=== PATIENT | male | born 1970 | race Caucasian/White ===

== ENCOUNTER 2021-02-11 01:38 | Day surgery (SDC) | payer OTHER, SELFPAY ==
[2021-01-29 14:08] VITALS: BMI 38.2
[2021-02-11 10:35] VITALS: BP 139/87; PULSE 69; RESP 18; TEMP 36.3; O2SAT 97; BMI 39.2
--- NOTE | 2021-02-11 10:44 | WPDANESEPPF ---
Anes - Initial Pre Proc Eval Procedure: Operation Date: 02/11/21 11:00 Proposed Procedures p Screening Colonoscopy - Jose Luis Kendall MD Date/Time: 02/11/21 10:44 Surgeon: Jose Luis Kendall MD Pre Op Diagnosis: neoplasm screening Patient Data Age: 50 Gender: M Height: 1.73 m Weight: 116.9 kg Last Vital Signs Temp 36.3 C L 02/11/21 10:35 Pulse 69 02/11/21 10:35 Resp 18 02/11/21 10:35 BP 139/87 02/11/21 10:35 Pulse Ox 97 02/11/21 10:35 Allergies Allergy/AdvReac Type Severity Reaction Status Date / Time bee venom protein (honey bee) Allergy Severe Unknown Verified 02/11/21 10:34 mushroom Allergy Nausea and Verified 02/11/21 10:34 Vomiting Home Medications Medication Instructions Recorded Confirmed Type amlodipine 10 mg tablet 10 mg PO DAILY #90 tablet 11/07/20 01/29/21 Rx atorvastatin 20 mg tablet 20 mg PO DAILY #90 tablet 11/07/20 01/29/21 Rx Patient hx anesthesia problems: none Family hx anesthesia problems: none PMFSH Past Medical History Medical History (Updated 02/11/21 @ 10:44 by Werner Graves MD) Essential hypertension Obesity (BMI 30-39.9) Other and unspecified hyperlipidemia Family History Family History Father Diabetes mellitus Acute myocardial infarction Mother Hypertension Sibling Patient's brother is in good health Social History Social History Smoking status: Never smoker Alcohol intake: current Alcohol use details: Socially Living arrangements: with family Spiritual care concerns: No Anes - Eval Final PreProcedure Day of Procedure 02/11/21 10:44 Patient weight: obese Heart: regular rate and rhythm Lungs: clear to auscultation and normal air movement Airway: Mallampati scale class II Neurological: alert and oriented Last oral intake: >/= 8 hours ASA classification: III Emergent: no Anesthetic plan: proceed Anesthesia type and monitoring: general GIVS Informed Consent: The patient's anesthetic plan and its attendant risks and benefits were discussed with the patient/family/POA. Questions were solicited and answers provided to the satisfaction of the patient/family/POA.
[2021-02-11] MEDS: LACTATED RINGERS 1,000 ML 150 ML IV CONT (10:47)
--- NOTE | 2021-02-11 11:33 | PM.HPGS ---
History of Present Illness History of Present Illness Consent: Risks, benefits, and alternatives have been discussed and questions answered. Patient agrees to proceed with procedure. Chief complaint: neoplasm screening Narrative: Olvin Paige is a 50 year old male here for first screening colonoscopy Review of Systems Constitutional: Constitutional: Denies headache(s) and Denies weakness Eyes: Eyes: Denies blurry vision ENT: Reports Normal hearing present, Denies headache(s) and Denies neck pain Cardiovascular: Cardiovascular: Denies chest pain and Denies dyspnea Respiratory: Respiratory: Denies dyspnea Gastrointestinal: Gastrointestinal: Reports no additional gastrointestinal complaints Genitourinary: Genitourinary: Denies dysuria Musculoskeletal: Musculoskeletal: Denies neck pain Integumentary/Breasts: Skin/Breast: Denies dry skin Neurologic: Reports Normal hearing present, Denies headache(s) and Denies weakness Psychiatric: Psychiatric: Denies anxiety Endocrine: Endocrine: Denies change in body appearance Hematologic/Lymphatic: Hematologic/Lymphatic: Denies easy bleeding Allergic/Immunologic: Allergic/Immunologic: Denies urticaria [facility] Past Medical History Medical History (Updated 02/11/21 @ 11:33 by Jose Luis Kendall MD) Colon cancer screening Essential hypertension Obesity (BMI 30-39.9) Other and unspecified hyperlipidemia Family History Family History Father Diabetes mellitus Acute myocardial infarction Mother Hypertension Sibling Patient's brother is in good health Social History Social History Smoking status: Never smoker Alcohol intake: current Alcohol use details: Socially Living arrangements: with family Spiritual care concerns: No Meds Home Medications and Allergies Home Medications Medication Instructions Recorded Confirmed Type amlodipine 10 mg tablet 10 mg PO DAILY #90 tablet 11/07/20 01/29/21 Rx atorvastatin 20 mg tablet 20 mg PO DAILY #90 tablet 11/07/20 01/29/21 Rx Allergies Allergy/AdvReac Type Severity Reaction Status Date / Time bee venom protein (honey bee) Allergy Severe Unknown Verified 02/11/21 10:34 mushroom Allergy Nausea and Verified 02/11/21 10:34 Vomiting Vital Signs Vital Signs - 24 hr 02/11/21 10:35 Temperature 97.4 F L Pulse Rate 69 Respiratory Rate 18 Blood Pressure 139/87 Pulse Oximetry 97 Exam Const: General: comfortable and no acute distress HENMT: General nose exam: Normal nares present Eyes: General: appearance normal, both eyes and all related structures Neck: Neck: no JVD Resp: Auscultation: clear to auscultation bilaterally Cardio: Rate: regular rate Rhythm: regular rhythm GI: Inspection: non-distended GI Palp: Yes Soft to palpation Skin: General skin exam: normal color Neuro: General: gait normal Speech: normal speech Extrem: General: normal to inspection Psych: Mental Status: mental status grossly normal Assessment and Plan Assessment and plan (1) Colon cancer screening: Code(s): Z12.11 - Encounter for screening for malignant neoplasm of colon Status: Acute Assessment and Plan: colonoscopy
--- NOTE | 2021-02-11 11:44 | SUR.OPER ---
cecum at 1144
[2021-02-11 12:00] VITALS: BP 117/68; PULSE 64; RESP 14; O2SAT 98
[2021-02-11 12:10] VITALS: BP 117/71; PULSE 62; RESP 17; O2SAT 96
[2021-02-11 12:20] VITALS: BP 132/85; PULSE 63; RESP 14; O2SAT 97
== END 2021-02-11 12:37 | disposition home or self-care (01) ==
PROVIDERS: PCP Internal Medicine; Visit Provider Internal Medicine Gastroenterology
PROC: 0DJD8ZZ Inspection of Lower Intestinal Tract, Via Natural or Artificial Opening Endoscopic (ICD-10-PCS; CPT 45378; principal; 2021-02-11 11:00)
DX: Z12.11 Encounter for screening for malignant neoplasm of colon (principal); K63.5 Polyp of colon; D12.4 Benign neoplasm of descending colon; I10 Essential (primary) hypertension; E78.5 Hyperlipidemia, unspecified; E66.9 Obesity, unspecified; Z68.39 Body mass index [BMI] 39.0-39.9, adult
CPT/HCPCS: 45385; 88305; J2001; J2704; J7120

== ENCOUNTER → 2021-08-03 09:11 | Outpatient (CLI) | payer OTHER, SELFPAY ==
[2021-08-03 11:23] LABS: Influenza A QL RT-PCR Negative (Negative); Influenza B QL RT-PCR Negative (Negative); SARS-CoV-2 RNA PCR Negative
== END ==
PROVIDERS: PCP Internal Medicine; Visit Provider Internal Medicine
DX: R05.9 Cough, unspecified (principal); Z20.822 Contact with and (suspected) exposure to COVID-19
CPT/HCPCS: 87502; C9803; U0003; U0005

== ENCOUNTER 2022-02-02 09:52 | Outpatient (CLI) | payer OTHER, SELFPAY ==
[2022-02-02 19:04] LABS: Cholesterol 216 mg/dL (0-200); HDL Direct 31 mg/dL; Triglycerides 176 mg/dL (<150)
[2022-02-02 19:15] LABS: LDL Cholesterol Direct 146 mg/dL
== END 2022-02-02 09:53 | disposition home or self-care (01) ==
LOC: ANHGOSHLAB 09:55
PROVIDERS: PCP Family Medicine; Visit Provider Family Medicine
DX: E78.5 Hyperlipidemia, unspecified (principal)
CPT/HCPCS: 36415; 80061

== ENCOUNTER 2023-02-07 09:32 | Outpatient (CLI) | payer OTHER, SELFPAY ==
[2023-02-07 19:18] LABS: Basophils Absolute Auto 0.1 K/mm3 (0.0-0.1); Basophils Percent Auto 1.1 % (0.2-1.2); Eosinophils Absolute Auto 0.3 K/mm3 (0-0.3); Eosinophils Percent Auto 3.2 % (0-4.4); Hematocrit 46.2 % (42.0-52.0); Hemoglobin 14.7 g/dL (14.0-18.0); Immature Granulocyte Absolute 0.03 K/mm3 (0.00-0.031); Immature Granulocyte Percent A 0.4 % (0-0.5); Lymphocytes Absolute Auto 2.55 K/mm3 (0.9-3.2); Lymphocytes Percent Auto 32.4 % (18.3-44.2); Mean Corpuscular HGB Conc 31.8 g/dl (32-36); Mean Corpuscular Hemoglobin 28.8 pg (26-34); Mean Corpuscular Volume 90.6 fl (80-100); Mean Platelet Volume 10.8 fl (7.4-10.4); Monocytes Absolute Auto 0.6 K/mm3 (0.1-0.6); Monocytes Percent Auto 7.3 % (2.6-8.5); Neutrophils Absolute Auto 4.4 K/mm3 (1.3-6.7); Neutrophils Percent Auto 55.6 % (45.5-73.1); Platelet Count Result 245 k/mm3 (150-375); Red Cell Distribution Width 12.4 % (11.5-14.5); White Blood Count 7.9 K/mm3 (4.5-10.0)
[2023-02-07 19:51] LABS: Alanine Aminotransferase 39 U/L (6-50); Albumin Level 4.4 g/dL (3.5-5.1); Alkaline Phosphatase 65 U/L (38-126); Anion Gap 6 mmol/L (8-16); Aspartate Amino Transferase 62 U/L (17-59); Bilirubin,Total 0.5 mg/dL (0.2-1.3); Blood Urea Nitrogen 14 mg/dL (9-20); Calcium 9.2 mg/dL (8.4-10.2); Carbon Dioxide 29 mmol/L (22-30); Chloride 102 mmol/L (98-107); Cholesterol 154 mg/dL (0-200); Estimated Glomerular Filt Rate > 60; Glucose 104 mg/dL (65-110); HDL Direct 35 mg/dL; Potassium 4.7 mmol/L (3.4-5.0); Sodium 137 mmol/L (137-145); Triglycerides 164 mg/dL (<150)
[2023-02-07 20:02] LABS: LDL Cholesterol Direct 88 mg/dL
[2023-02-08 17:26] LABS: Prostate Specific Antigen 1.3 ng/mL (< OR = 4.0)
== END 2023-02-07 09:33 | disposition home or self-care (01) ==
LOC: ANHGOSHLAB 09:33
PROVIDERS: PCP Family Medicine; Visit Provider Family Medicine
DX: Z13.220 Encounter for screening for lipoid disorders (principal); Z13.228 Encounter for screening for other metabolic disorders; Z12.5 Encounter for screening for malignant neoplasm of prostate; R53.83 Other fatigue
CPT/HCPCS: 36415; 80053; 80061; 84153; 85025; G0103

== ENCOUNTER 2023-09-19 07:01 | Emergency (ER) | payer OTHER, SELFPAY ==
[2023-09-19] VITALS (17 sets, daily range): BP systolic 114–146; BP diastolic 73–99; PULSE 72–100; RESP 13–22; TEMP 36.6–37.3; O2SAT 93–100
--- NOTE | ~2023-09-19 | XR_ITS ---
XR ankle LT 2V 09/19/2023 09:43 Indication: Post reduction left ankle fracture Procedure: 2 views left ankle Comparison: 09/19/2023 Findings: There is improved displacement/angulation of oblique distal fibular fracture. There is decr eased widening of the medial aspect of the ankle mortise. There is a small ossific density posterior to the tibia on the lateral view, suspicious for avulsion fracture. Small degenerative calcaneal enth esophyte. Impression: 1: Improved alignment of left ankle post reduction. Improved alignment of oblique distal fibular frac ture. Possible avulsion fracture posterior malleolus. Reviewed, dictated and finalized at location B. Impression: 1: Improved alignment of left ankle post reduction. Improved alignment of obliq ue distal fibular fracture. Possible avulsion fracture posterior malleolus.
--- NOTE | ~2023-09-19 | XR_ITS ---
Left ankle Technique: AP, oblique, and lateral views were obtained. Clinical History: Pain Findings: There is an acute, oblique fracture of the distal fibula, at and just proximal to level ank le mortise, mildly displaced. There is widening of the medial aspect of the ankle mortise. No distal tibial fracture clearly identified. Mild soft tissue swelling about the ankle is noted. Impression: Acute, oblique, mildly displaced fracture the distal fibula, as detailed above. Associated widening of the medial aspect of the ankle mortise. Reviewed, dictated and finalized at location M. Impression: Acute, oblique, mildly displaced fracture the distal fibula, as detailed above. Associated widening of the medial aspect of the ankle mortise.
--- NOTE | ~2023-09-19 | XR_ITS ---
Left Shoulder Technique: AP and scapular Y views were obtained. Clinical History: Pain Findings: No fracture or dislocation is seen. Osseous alignment is anatomic. The glenohumeral and acr omioclavicular joint spaces are preserved. Soft tissues are unremarkable. Impression: Unremarkable left shoulder radiographs. Reviewed, dictated and finalized at [facility]. Impression: Unremarkable left shoulder radiographs.
--- NOTE | ~2023-09-19 | XR_ITS ---
XR tibia fibula LT 2V 09/19/2023 08:53 Indication: Left ankle fracture Procedure: 2 views left tibia/fibula Comparison: 09/19/2023 Findings: There is an acute oblique distal fibular fracture with the inferior extent of the level of the ankle mortise. Minimal lateral displacement. Moderate soft tissue swelling. There is widening of the medial ankle mortise. Moderate medial soft tissue swelling is wall. Impression: 1: Acute obliquely oriented distal fibular fracture with mild lateral and posterior displacement and widening of the medial ankle mortise. Reviewed, dictated and finalized at location B. Impression: 1: Acute obliquely oriented distal fibular fracture with mild lateral and poste rior displacement and widening of the medial ankle mortise.
--- NOTE | 2023-09-19 07:52 | ED.LOWEXIN ---
HPI - Extremity Injury (Lower) General Chief Complaint: Extremity Injury, Lower Stated Complaint: fall, ankle pain Time Seen by Provider: 09/19/23 07:51 Source: patient and family Mode of arrival: ambulatory Limitations: no limitations History of Present Illness HPI Narrative: Patient presents with left ankle pain and left shoulder pain after he missed a step and fell down 2 steps earlier today. He denies any paresthesias. He has not yet taken anything for pain. Related Data Allergies Allergy/AdvReac Type Severity Reaction Status Date / Time bee venom protein (honey bee) Allergy Severe Unknown Verified 08/08/23 08:05 mushroom Allergy Nausea and Verified 08/08/23 08:05 Vomiting PMFSH Past Medical History Medical History Colon cancer screening Essential hypertension Obesity (BMI 30-39.9) Other and unspecified hyperlipidemia Family History Family History Father Diabetes mellitus Acute myocardial infarction Mother Hypertension Sibling Patient's brother is in good health Social History Social History Smoking status: Never smoker Alcohol intake: current Alcohol use details: Socially Substance use: never Lack of Transportation: No Lack of Food: Never True Current Housing: I Have Housing Concerned About Future Housing: No Difficulty Paying Gas/Electric Bills: No Difficulty Paying for Meds: No Currently Unemployed: No Education: Bachelor's Degree Difficulty w/ Childcare or Family Care: No Living arrangements: with family Spiritual care concerns: No Exam Narrative: GENERAL: Well-appearing, well-nourished, and in no acute distress. HEAD: Normocephalic, atraumatic. EYES: Non injected, non icteric ENT: Nares clear, no rhinorrhea or epistaxis. Malampati Class III. NECK: Supple. CHEST: Speaking in full sentences. No respiratory distress. HEART: Regular rate and rhythm. Strong palpable DP pulse in left foot. ABDOMEN: Soft, nondistended. EXTREMITIES: Mild edema of left ankle. Able to demonstrate mild dorsiflexion and plantar flexion. Compartments soft. Some TTP proximal fibula on L SKIN: Warm, dry, no rash. NEURO: No focal deficits. Alert and oriented x3. PSYCH: Normal mood and affect. Course Vital Signs Vital signs: Vital Signs Temperature 99.2 F 09/19/23 07:07 Pulse Rate 100 09/19/23 07:07 Respiratory Rate 16 09/19/23 07:07 Blood Pressure 140/82 09/19/23 07:07 Pulse Oximetry 100 09/19/23 07:07 Temperature 97.8 F 09/19/23 09:55 Pulse Rate 75 09/19/23 10:46 Respiratory Rate 18 09/19/23 10:46 Blood Pressure 131/87 09/19/23 10:46 Pulse Oximetry 96 09/19/23 10:46 Oxygen Delivery Nasal Cannula 09/19/23 10:03 Oxygen Flow Rate 2 09/19/23 10:03 Procedures Orthopedic Joint Reduction Joint #1: Orthopedic Joint Reduction Date: 09/19/23 Time Out Performed: Yes ([id number]) Side: left Joint Reduction Location: ankle Analgesia: procedural sedation Pre-Procedure Neuro Vascular Exam: normal Post-reduction neuro exam: intact Post-reduction vascular: intact Post Reduction X-Ray Obtained: Yes Post Reduction X-Ray Results: reduced Splint Applied: Yes Patient Tolerated Procedure: well and no complications MDM - Extremity Injury (Lower) MDM Narrative Medical decision making narrative: Patient presnts with ankle and shoulder pain after accidentally falling down steps. In the emergency department they are afebrile with vital signs within normal limits. Patient has evidence of a distal fibular fracture with mild displacement of the ankle joint. We will performed conscious sedation and joint reduction. Acetaminophen ordered. Given he is having some tenderness to palpation proximally, will also obtain plai
[2023-09-19] MEDS: ACETAMINOPHEN 500 MG TABLET 1000 MG PO (08:50)
[2023-09-19] MEDS: fentaNYL CITRATE INJ (*CRX) 100 MCG/2 ML VIAL IV PUSH (09:31)
[2023-09-19] MEDS: MIDAZOLAM HCL (*CRX) 2 MG/2 ML VIAL IV PUSH (09:33)
== END 2023-09-19 10:55 | disposition home or self-care (01) ==
PROVIDERS: Emergency Provider Student in an Organized Health Care Education/Training Program; PCP Family Medicine
DX: S82.832A Other fracture of upper and lower end of left fibula, initial encounter for closed fracture (principal); I10 Essential (primary) hypertension; E78.49 Other hyperlipidemia; E66.9 Obesity, unspecified; Z68.41 Body mass index [BMI] 40.0-44.9, adult; W10.9XXA Fall (on) (from) unspecified stairs and steps, initial encounter
CPT/HCPCS: 27788; 73030; 73590; 73600; 73610; 99285; A9270; J2250; J3010

== ENCOUNTER 2023-09-26 09:27 | Outpatient (CLI) | payer OTHER, SELFPAY ==
--- NOTE | 2023-09-26 09:55 | ECG_ITS ---
SEE SCANNED COPY FOR CONFIRMED REPORT MTDD
== END 2023-09-26 09:28 | disposition home or self-care (01) ==
LOC: ANHSURGERY 09:32
PROVIDERS: PCP Family Medicine; Visit Provider Orthopaedic Surgery
DX: Z01.818 Encounter for other preprocedural examination (principal); I10 Essential (primary) hypertension
CPT/HCPCS: 93005

== ENCOUNTER 2023-09-27 00:39 | Day surgery (SDC) | payer OTHER, SELFPAY ==
[2023-09-23 15:52] VITALS: BMI 39.6
--- NOTE | 2023-09-23 15:53 | PC.NURSE ---
Report to the Outpatient Waiting Room, entrance under the green pavilion located off [facility], at time _1pm_ on date _[id number]_. Planned Procedure Time: _3pm_. Time changes happen often and if your time is changed the preop area will call you the afternoon before. - You and your visitor will be asked to self-screen and do not enter if you have any COVID symptoms. - A mask is optional within the hospital at this time. Patients may have clear liquids (water, carbonated beverages, clear teas, apple juice) until 3 hours prior to surgery with a maximum of 20 ounces. - No food from midnight until time of surgery Take the following medications with a SIP of water the morning of surgery: ___Amlodipine and pain pill if needed DO NOT STOP ANY OF YOUR OTHER PRESCRIPTION MEDICATIONS PRIOR TO SURGERY ?EXCEPT THE FOLLOWING Medications to discontinue per physician Ibuprofen Date to take last dose__Stop now. Please no make-up, nail zimbabwean, hairspray, perfume, deodorant, or body powder the day of surgery. No jewelry (including any body piercings) or valuables the day of surgery, leave them at home. Please take a shower or bath the night before, or the morning of, surgery with an antibacterial soap. Wear comfortable, loose fitting clothing. - Jewelry must be removed prior to entering the operating room. Rings and piercings that are not removed may be cut off. - The hospital will not accept responsibility for valuables. - Please leave all valuables, including medications, at home the day of surgery. If you are going home after surgery, a licensed van driver must drive you home. - NO public transportation without another adult if you receive anesthesia. - We recommend that an adult stay with you for 24 hours following discharge. - We also recommend that you do not drive, make important decision, drink alcoholic beverages, or take any drugs that were not prescribed by your health care provider for at least 24 hours after your discharge time. Follow any additional instructions given to you from your surgeon. If you or anyone in your household have experienced Covid symptoms in the past week, please notify your surgeon or the nurse liaison at the phone number below for possible testing. Telephone instructions given to __Sean___and asked if any additional questions and then verbalized understanding. Patient advised to call surgeon office or pre surgery nurse liaison [phone] if any additional questions.
--- NOTE | 2023-09-23 16:05 | PC.NURSE ---
Report to the Outpatient Waiting Room, entrance under the green pavilion located off [facility], at time _1pm_ on date _[id number]_. Planned Procedure Time: _3pm_. Time changes happen often and if your time is changed the preop area will call you the afternoon before. - You and your visitor will be asked to self-screen and do not enter if you have any COVID symptoms. - A mask is optional within the hospital at this time. Patients may have clear liquids (water, carbonated beverages, clear teas, apple juice) until 3 hours prior to surgery with a maximum of 20 ounces. - No food from midnight until time of surgery Take the following medications with a SIP of water the morning of surgery: __Amlodipine and if needed pain pill. DO NOT STOP ANY OF YOUR OTHER PRESCRIPTION MEDICATIONS PRIOR TO SURGERY ?EXCEPT THE FOLLOWING Medications to discontinue per physician Ibuprofen Date to take last dose__Stop now. Please no make-up, nail turkmen, hairspray, perfume, deodorant, or body powder the day of surgery. No jewelry (including any body piercings) or valuables the day of surgery, leave them at home. Please take a shower or bath the night before, or the morning of, surgery with an antibacterial soap. Wear comfortable, loose fitting clothing. - Jewelry must be removed prior to entering the operating room. Rings and piercings that are not removed may be cut off. - The hospital will not accept responsibility for valuables. - Please leave all valuables, including medications, at home the day of surgery. If you are going home after surgery, a licensed straddle truck driver must drive you home. - NO public transportation without another adult if you receive anesthesia. - We recommend that an adult stay with you for 24 hours following discharge. - We also recommend that you do not drive, make important decision, drink alcoholic beverages, or take any drugs that were not prescribed by your health care provider for at least 24 hours after your discharge time. Follow any additional instructions given to you from your surgeon. If you or anyone in your household have experienced Covid symptoms in the past week, please notify your surgeon or the nurse liaison at the phone number below for possible testing. Telephone instructions given to __Sean___and asked if any additional questions and then verbalized understanding. Patient advised to call surgeon office or pre surgery nurse liaison [phone] if any additional questions.
[2023-09-27] VITALS (10 sets, daily range): BP systolic 128–183; BP diastolic 83–122; PULSE 90–111; RESP 12–16; TEMP 36.1–36.3; O2SAT 92–100
--- NOTE | ~2023-09-27 | XR_ITS ---
EXAMINATION: XR surgery orthopedic DATE: 09/27/2023 15:39 INDICATION: Distal left fibular fracture. TECHNIQUE: 3 intraoperative spot fluoroscopic views of left ankle were obtained. I was not present. F luoroscopy exposure time was 44 seconds. COMPARISON: Left ankle radiographs 09/19/2023 FINDINGS: There is an oblique fracture of distal fibula in near-anatomic alignment status post open r eduction internal fixation with lateral plate and screws and interfragmentary screw. There is a tensi on band across the tibiofibular syndesmosis. The ankle mortise is normal. IMPRESSION: 1. Oblique fracture of distal fibula status post open reduction internal fixation. 2. Fixation of the tibiofibular syndesmosis. Reviewed, dictated and finalized at location A. IMPRESSION: 1. Oblique fracture of distal fibula status post open reduction internal fixati on. 2. Fixation of the tibiofibular syndesmosis.
--- NOTE | 2023-09-27 12:48 | WPDHPUPDATE1 ---
History and Physical Update Update Date/Time: 09/27/23 12:48 History and Physical has been reviewed, including an updated exam of the patient. There are NO changes in the patient's condition. Risks, benefits, and alternatives have been discussed and questions answered. Patient agrees to proceed with procedure.
[2023-09-27] MEDS: ACETAMINOPHEN 500 MG TABLET 1000 MG PO (13:03)
[2023-09-27] MEDS: LACTATED RINGERS 1,000 ML 30 ML IV CONT ×2 (13:12→15:55)
--- NOTE | 2023-09-27 13:28 | WPDANESEPPF ---
Anes - Initial Pre Proc Eval Procedure: Operation Date: 09/27/23 15:00 Proposed Procedures p Open Reduction Internal Fixation Left Lateral Malleolus Fracture with Tibia Fibula Syndesmosis - Chon Llanes MD Date/Time: 09/27/23 13:28 Surgeon: Chon Llanes MD Pre Op Diagnosis: left ankle lateral maleolous fx Patient Data Age: 53 Gender: M Height: 1.73 m Weight: 116.7 kg Last Vital Signs Temp 36.1 C L 09/27/23 13:14 Pulse 111 H 09/27/23 13:14 Resp 16 09/27/23 13:14 BP 128/89 09/27/23 13:14 Pulse Ox 97 09/27/23 13:14 O2 Del Method Room Air 09/27/23 13:14 Allergies Allergy/AdvReac Type Severity Reaction Status Date / Time bee venom protein (honey bee) Allergy Severe Unknown Verified 09/27/23 12:59 mushroom Allergy Nausea and Verified 09/27/23 12:59 Vomiting Home Medications Medication Instructions Recorded Confirmed Type hydrocortisone 1 % topical ointment 1 applic topical BID #28.35 grams 08/04/21 09/26/23 Rx amlodipine 10 mg tablet 10 mg PO DAILY #90 tabs 02/26/22 09/27/23 Rx atorvastatin 10 mg tablet 10 mg PO DAILY #90 tabs 08/16/23 09/27/23 Rx acetaminophen 500 mg capsule 1,000 mg PO Q6H PRN pain #20 caps 09/19/23 09/27/23 Rx hydrocodone 5 mg-acetaminophen 325 1 tablet PO Q8H PRN pain #12 tabs 09/19/23 09/27/23 Rx mg tablet ibuprofen 600 mg tablet 600 mg PO TID PRN pain #20 tabs 09/19/23 09/27/23 Rx Patient hx anesthesia problems: none Family hx anesthesia problems: none Results Review: All pre-operative results and documents have been reviewed as part of the pre-operative evaluation. [facility] Past Medical History Medical History Colon cancer screening Essential hypertension Obesity (BMI 30-39.9) Other and unspecified hyperlipidemia Family History Family History Father Diabetes mellitus Acute myocardial infarction Mother Hypertension Sibling Patient's brother is in good health Social History Social History Smoking status: Never smoker Alcohol intake: current Alcohol use details: Socially Substance use: never Lack of Transportation: No Lack of Food: Never True Current Housing: I Have Housing Concerned About Future Housing: No Difficulty Paying Gas/Electric Bills: No Difficulty Paying for Meds: No Currently Unemployed: No Education: Bachelor's Degree Difficulty w/ Childcare or Family Care: No Living arrangements: with family Spiritual care concerns: No Anes - Eval Final PreProcedure Day of Procedure 09/27/23 13:28 Patient weight: obese Heart: regular rate and rhythm Lungs: clear to auscultation Airway: Mallampati scale class II Neurological: alert and oriented Last oral intake: >/= 8 hours ASA classification: III Emergent: no Anesthetic plan: proceed Anesthesia type and monitoring: general LMA and standard monitoring Results Review: All pre-operative results and documents have been reviewed as part of the pre-operative evaluation. Informed Consent: The patient's anesthetic plan and its attendant risks and benefits were discussed with the patient/family/POA. Questions were solicited and answers provided to the satisfaction of the patient/family/POA.
[2023-09-27] MEDS: KETOROLAC 15 MG/ML VIAL (*BKC) IV PUSH (13:30)
[2023-09-27] MEDS: ceFAZolin 2 GM/D5W 50 ML 2 GM/50 ML BAG IVPB (14:11)
[2023-09-27] MEDS: BUPIVACAINE/EPINEPHRINE 0.5% 50 ML VIAL 20 ML INFILTRATE (15:07)
--- NOTE | 2023-09-27 16:03 | W.PM.PROC2 ---
Procedure Note - Detailed Date of Procedure 09/27/23 Pre-op Diagnosis 1. Left ankle lateral maleolous fx 2. Tibia fibula syndesmosis disruption. Post-op Diagnosis Same Procedure Performed 1. ORIF left ankle lateral malleolus fracture 2. ORIF tib-fib syndesmosis Surgeon Chon Llanes MD Label Press Operator Krissy Shaikh PA-C Anesthesia General Findings Displaced oblique Glez B fibula fracture. Anatomic reduction with anterior to posterior lag screw and lateral anatomic plate. Syndesmosis show definite widening. Close reduction confirmed radiographically and with inspection of the anterior syndesmosis. A tight rope suture button fixation was placed through the plate reducing the syndesmosis anatomically. Description of Procedure A general anesthetic was administered. The limb was prepped and draped in the usual sterile fashion with a well-padded tourniquet high on the thigh. A bump was placed under the hip. The limb was exsanguinated and the tourniquet inflated to 300 millimeters of mercury during the procedure. A longitudinal incision was created at the distal fibula. Careful dissection was carried down to bone. Perineal nerve branches were protected. The fracture was carefully exposed. Callus and debris was irrigated from the wound. The fracture was brought out to length. Reduction was accomplished with the reduction forceps. An anterior to posterior lag screw was placed. Fixation was performed with a combination of cortical and cancellous screws. The distal screws were locking. A channel was drilled from the fibula through the tibia all 4 cortices for placement of the tight rope suture button. The syndesmosis reduced anatomically. Fluoroscopy was used throughout the procedure to confirm anatomic reduction and appropriate placement of the implants. The tourniquet was released. Meticulous hemostasis was obtained. Wound was closed in layers with 2-0 Vicryl suture 3-0 Monocryl suture and grayson. A sterile dressing with well padded splint was applied. The patient was extubated and brought to the recovery room in stable condition. There were no complications. Implants Arthrex 5 hole anatomic distal fibula plate. Arthrex tight rope tib fib syndesmosis fixation system. Estimated Blood Loss 10 Drains No Packing No Pathology None sent Complications No immediate complications Condition Stable Disposition PACU [facility] Billing Surgery - Charge Forward: Surgery Billing
[2023-09-27] MEDS: fentaNYL CITRATE INJ (*CRX) 100 MCG/2 ML VIAL 25 MCG IV PUSH ×8 (16:12→17:03)
[2023-09-27] MEDS: oxyCODONE HCL (*CRX) 5 MG TAB IR PO (17:47)
== END 2023-09-27 18:40 | disposition home or self-care (01) ==
PROVIDERS: PCP Family Medicine; Visit Provider Orthopaedic Surgery
PROC: (CPT 27792; principal; 2023-09-27 15:00)
DX: S82.62XA Displaced fracture of lateral malleolus of left fibula, initial encounter for closed fracture (principal); S93.432A Sprain of tibiofibular ligament of left ankle, initial encounter; W10.9XXA Fall (on) (from) unspecified stairs and steps, initial encounter; I10 Essential (primary) hypertension; E66.9 Obesity, unspecified; Z68.39 Body mass index [BMI] 39.0-39.9, adult
CPT/HCPCS: 27792; 27829; 93005; 99199; A9270; C1713; J0690; J1170; J1885; J2250; J3010; J7120

== ENCOUNTER 2023-11-09 13:53 | Outpatient (CLI) | payer OTHER, SELFPAY ==
--- NOTE | ~2023-11-09 | XR_ITS ---
XR ankle LT 2V Ordering provider: Chon Llanes MD History: . Z47.89 - Encounter for other orthopedic aftercare . Comparison: September 19, 2023 FINDINGS: BONES: No acute fracture or dislocation. Postoperative changes in the distal fibula. JOINT SPACES: The ankle mortise is normal. SOFT TISSUES: Soft tissue swelling is seen in the lateral malleolus area. Calcaneus spur. IMPRESSION: No acute osseous abnormality left ankle. Postoperative changes in the distal fibula. Reviewed, dictated and finalized at location A. IMPRESSION: No acute osseous abnormality left ankle. Postoperative changes in the distal fi bula.
== END 2023-11-09 13:54 | disposition home or self-care (01) ==
LOC: ANHIMG 13:56
PROVIDERS: PCP Family Medicine; Visit Provider Orthopaedic Surgery
DX: Z47.89 Encounter for other orthopedic aftercare (principal)
CPT/HCPCS: 73600

== ENCOUNTER 2023-12-12 00:36 | Day surgery (SDC) | payer OTHER, SELFPAY ==
[2023-09-14 13:16] VITALS: BMI 37.0
[2023-11-25 15:48] VITALS: BMI 37.0
[2023-12-12 11:49] VITALS: BP 136/85; PULSE 80; RESP 18; TEMP 36.1; O2SAT 96; BMI 36.5
[2023-12-12] MEDS: LACTATED RINGERS 1,000 ML 150 ML IV CONT (11:58)
--- NOTE | 2023-12-12 12:13 | WPDANESEPPF ---
Anes - Initial Pre Proc Eval Procedure: Operation Date: 12/12/23 13:00 Proposed Procedures p Colonoscopy - Jose Luis Kendall MD Date/Time: 12/12/23 12:13 Surgeon: Jose Luis Kendall MD Pre Op Diagnosis: Hemorrhage of anus and rectum Patient Data Age: 53 Gender: M Height: 1.78 m Weight: 115.5 kg Last Vital Signs Temp 97 F L 12/12/23 11:49 Pulse 80 12/12/23 11:49 Resp 18 12/12/23 11:49 BP 136/85 12/12/23 11:49 Pulse Ox 96 12/12/23 11:49 O2 Del Method Room Air 12/12/23 11:49 Allergies Allergy/AdvReac Type Severity Reaction Status Date / Time bee venom protein (honey bee) Allergy Severe Unknown Verified 12/12/23 11:48 mushroom Allergy Nausea and Verified 12/12/23 11:48 Vomiting Home Medications Medication Instructions Recorded Confirmed Type hydrocortisone 1 % topical ointment 1 applic topical BID #28.35 grams 08/04/21 12/12/23 Rx amlodipine 10 mg tablet 10 mg PO DAILY #90 tabs 02/26/22 12/12/23 Rx atorvastatin 10 mg tablet 10 mg PO DAILY #90 tabs 08/16/23 12/12/23 Rx acetaminophen 500 mg capsule 1,000 mg PO Q6H PRN pain #20 caps 09/19/23 12/12/23 Rx Patient hx anesthesia problems: none Family hx anesthesia problems: none Results Review: All pre-operative results and documents have been reviewed as part of the pre-operative evaluation. [facility] Past Medical History Medical History Colon cancer screening Essential hypertension Obesity (BMI 30-39.9) Other and unspecified hyperlipidemia Surgical History Surgical History Status post open reduction with internal fixation (ORIF) of fracture of ankle (~09/27/23) Family History Family History Father Diabetes mellitus Acute myocardial infarction Mother Hypertension Sibling Patient's brother is in good health Social History Social History Smoking status: Never smoker Alcohol intake: current Alcohol use details: Socially Substance use: never Lack of Transportation: No Lack of Food: Never True Current Housing: I Have Housing Concerned About Future Housing: No Difficulty Paying Gas/Electric Bills: No Difficulty Paying for Meds: No Currently Unemployed: No Education: Bachelor's Degree Difficulty w/ Childcare or Family Care: No Living arrangements: with family Spiritual care concerns: No Anes - Eval Final PreProcedure Day of Procedure 12/12/23 12:13 Patient weight: obese Heart: regular rate and rhythm Lungs: clear to auscultation Airway: Mallampati scale class II Neurological: alert and oriented Last oral intake: >/= 8 hours ASA classification: III Emergent: no Anesthetic plan: proceed Anesthesia type and monitoring: general GIVS and standard monitoring Results Review: All pre-operative results and documents have been reviewed as part of the pre-operative evaluation. Informed Consent: The patient's anesthetic plan and its attendant risks and benefits were discussed with the patient/family/POA. Questions were solicited and answers provided to the satisfaction of the patient/family/POA.
--- NOTE | 2023-12-12 12:57 | PM.HPGS ---
History of Present Illness History of Present Illness Consent: Risks, benefits, and alternatives have been discussed and questions answered. Patient agrees to proceed with procedure. Chief complaint: Hemorrhage of anus and rectum Narrative: Olvin Piage is a 53 year old male here for colonoscopy, last one 2020 with polyp, recently with intermittent blood in stools Review of Systems Review of Systems: All systems reviewed & are unremarkable except as noted in HPI and below PMFSH Past Medical History Medical History (Updated 12/12/23 @ 12:58 by Jose Luis Kendall MD) Colon cancer screening Colon polyp Essential hypertension Obesity (BMI 30-39.9) Other and unspecified hyperlipidemia Rectal bleeding Surgical History Surgical History Status post open reduction with internal fixation (ORIF) of fracture of ankle (~09/27/23) Family History Family History Father Diabetes mellitus Acute myocardial infarction Mother Hypertension Sibling Patient's brother is in good health Social History Social History Smoking status: Never smoker Alcohol intake: current Alcohol use details: Socially Substance use: never Lack of Transportation: No Lack of Food: Never True Current Housing: I Have Housing Concerned About Future Housing: No Difficulty Paying Gas/Electric Bills: No Difficulty Paying for Meds: No Currently Unemployed: No Education: Bachelor's Degree Difficulty w/ Childcare or Family Care: No Living arrangements: with family Spiritual care concerns: No Meds Home Medications and Allergies Home Medications Medication Instructions Recorded Confirmed Type hydrocortisone 1 % topical ointment 1 applic topical BID #28.35 grams 08/04/21 12/12/23 Rx amlodipine 10 mg tablet 10 mg PO DAILY #90 tabs 02/26/22 12/12/23 Rx atorvastatin 10 mg tablet 10 mg PO DAILY #90 tabs 08/16/23 12/12/23 Rx acetaminophen 500 mg capsule 1,000 mg PO Q6H PRN pain #20 caps 09/19/23 12/12/23 Rx Allergies Allergy/AdvReac Type Severity Reaction Status Date / Time bee venom protein (honey bee) Allergy Severe Unknown Verified 12/12/23 11:48 mushroom Allergy Nausea and Verified 12/12/23 11:48 Vomiting Vital Signs Vital Signs - 24 hr 12/12/23 11:49 Temperature 97 F L Pulse Rate 80 Respiratory Rate 18 Blood Pressure 136/85 Pulse Oximetry 96 Oxygen Delivery Room Air Exam Const: General: comfortable and no acute distress HENMT: Face/Nose/Sinus: Normal nares present Eyes: General: appearance normal, both eyes and all related structures Neck: Neck: no JVD Resp: Auscultation: clear to auscultation bilaterally Cardio: Rate: regular rate Rhythm: regular rhythm GI: Inspection: non-distended GI Palp: Yes Soft to palpation Skin: General skin exam: normal color Neuro: General: gait normal Speech: normal speech Extrem: General: normal to inspection Psych: Mental Status: mental status grossly normal Assessment and Plan Assessment and plan (1) Rectal bleeding: Code(s): K62.5 - Hemorrhage of anus and rectum Status: Acute Assessment and Plan: colonoscopy (2) Colon polyp: Code(s): K63.5 - Polyp of colon Status: Acute
[2023-12-12 13:11] VITALS: BP 115/77; PULSE 80; RESP 20; O2SAT 97
[2023-12-12 13:21] VITALS: BP 126/83; PULSE 78; RESP 18; O2SAT 98
[2023-12-12 13:31] VITALS: BP 126/87; PULSE 72; RESP 18; O2SAT 98
== END 2023-12-12 13:41 | disposition home or self-care (01) ==
PROVIDERS: PCP Family Medicine; Visit Provider Internal Medicine Gastroenterology
PROC: 0DJD8ZZ Inspection of Lower Intestinal Tract, Via Natural or Artificial Opening Endoscopic (ICD-10-PCS; CPT 45378; principal; 2023-12-12 13:00)
DX: D12.3 Benign neoplasm of transverse colon (principal); K64.8 Other hemorrhoids; I10 Essential (primary) hypertension; E78.5 Hyperlipidemia, unspecified; E66.9 Obesity, unspecified; Z68.36 Body mass index [BMI] 36.0-36.9, adult; Z98.890 Other specified postprocedural states; Z86.010 Personal history of colon polyps; Z80.49 Family history of malignant neoplasm of other genital organs
CPT/HCPCS: 45385; 88305; J2704; J7120

== ENCOUNTER 2024-02-14 10:19 | Outpatient (CLI) | payer OTHER, SELFPAY ==
[2024-02-14 13:34] LABS: Basophils Absolute Auto 0.1 K/mm3 (0.0-0.1); Basophils Percent Auto 0.9 % (0.2-1.2); Eosinophils Absolute Auto 0.2 K/mm3 (0-0.3); Eosinophils Percent Auto 2.2 % (0-4.4); Hematocrit 48.8 % (42.0-52.0); Hemoglobin 15.3 g/dL (14.0-18.0); Immature Granulocyte Absolute 0.03 K/mm3 (0.00-0.031); Immature Granulocyte Percent A 0.4 % (0-0.5); Lymphocytes Absolute Auto 2.11 K/mm3 (0.9-3.2); Lymphocytes Percent Auto 26.1 % (18.3-44.2); Mean Corpuscular HGB Conc 31.4 g/dl (32-36); Mean Corpuscular Hemoglobin 28.8 pg (26-34); Mean Corpuscular Volume 91.9 fl (80-100); Monocytes Absolute Auto 0.6 K/mm3 (0.1-0.6); Monocytes Percent Auto 7.2 % (2.6-8.5); Neutrophils Absolute Auto 5.1 K/mm3 (1.3-6.7); Neutrophils Percent Auto 63.2 % (45.5-73.1); Platelet Count Result 268 k/mm3 (150-375); Red Blood Count 5.31 M/mm3 (4.6-6.20); Red Cell Distribution Width 12.5 % (11.5-14.5); White Blood Count 8.1 K/mm3 (4.5-10.0)
[2024-02-14 14:20] LABS: Potassium 5.2 mmol/L (3.4-5.0)
[2024-02-14 14:32] LABS: LDL Cholesterol Direct 101 mg/dL
[2024-02-14 14:50] LABS: Prostate Specific Antigen 1.3 ng/mL (< OR = 4.0)
[2024-02-14 15:20] LABS: Alanine Aminotransferase 43 U/L (6-50); Albumin Level 4.5 g/dL (3.5-5.1); Alkaline Phosphatase 73 U/L (38-126); Anion Gap 9 mmol/L (4-12); Aspartate Amino Transferase 61 U/L (17-59); Bilirubin,Total 0.6 mg/dL (0.2-1.3); Blood Urea Nitrogen 14 mg/dL (9-20); Calcium 9.5 mg/dL (8.4-10.2); Carbon Dioxide 30 mmol/L (22-30); Chloride 92 mmol/L (98-107); Cholesterol 172 mg/dL (0-200); Estimated Glomerular Filt Rate > 60; Glucose 110 mg/dL (65-110); HDL Direct 40 mg/dL; Sodium 131 mmol/L (137-145); Triglycerides 216 mg/dL (<150)
== END 2024-02-14 10:20 | disposition home or self-care (01) ==
LOC: ANHGOSHLAB 10:21
PROVIDERS: PCP Family Medicine; Visit Provider Family Medicine
DX: Z12.5 Encounter for screening for malignant neoplasm of prostate (principal); R53.83 Other fatigue; Z13.228 Encounter for screening for other metabolic disorders; E78.5 Hyperlipidemia, unspecified; Z13.220 Encounter for screening for lipoid disorders
CPT/HCPCS: 36415; 80053; 80061; 84153; 85025; G0103

== ENCOUNTER 2024-02-21 08:38 | Outpatient (CLI) | payer OTHER, SELFPAY ==
[2024-02-21 09:43] LABS: Anion Gap 8 mmol/L (4-12); Blood Urea Nitrogen 19 mg/dL (9-20); Carbon Dioxide 29 mmol/L (22-30); Chloride 100 mmol/L (98-107); Estimated Glomerular Filt Rate > 60; Glucose 106 mg/dL (65-110); Potassium 4.8 mmol/L (3.4-5.0); Sodium 137 mmol/L (137-145)
== END 2024-02-21 08:39 | disposition home or self-care (01) ==
PROVIDERS: PCP Family Medicine; Visit Provider Family Medicine
DX: Z13.228 Encounter for screening for other metabolic disorders (principal)
CPT/HCPCS: 36415; 80048

== ENCOUNTER 2024-11-09 10:45 | Outpatient (CLI) | payer OTHER, SELFPAY ==
[2024-11-09 18:25] LABS: Kit Draw Collected
== END 2024-11-09 10:46 | disposition home or self-care (01) ==
LOC: ANHGOSHLAB 10:46
PROVIDERS: PCP Family Medicine; Visit Provider Family Medicine
DX: E66.9 Obesity, unspecified (principal); E78.5 Hyperlipidemia, unspecified; I10 Essential (primary) hypertension; Z79.899 Other long term (current) drug therapy
CPT/HCPCS: 36415

== ENCOUNTER 2024-11-16 11:54 | Outpatient (CLI) | payer OTHER, SELFPAY ==
--- NOTE | ~2024-11-16 | XR_ITS ---
EXAM/ PROCEDURE: XR ankle LT min 3V - 11/16/2024 12:09 CDT HISTORY: 54 years old Male with LT LATERAL ANKLE PAIN x1 WEEK; HX LT ANKLE SURGERY x1 YR AGO COMPARISON: None available TECHNIQUE: Four view(s) FINDINGS/ IMPRESSION: There are no fractures or dislocations.Joint space narrowing, subchondral sclerosis, subchondral cyst formation and osteophyte formation, compatible with mild osteoarthritis. Status post ORIF of distal femur and tibia with intact hardware and no loosening. Reviewed, dictated and finalized at location A.
--- NOTE | ~2024-11-16 | US_ITS ---
US venous doppler [facility] - 11/16/2024 12:31 CDT History: 54 years old Male with left lower extremity pain and swelling. Real-time sonographic images of the left lower extremity venous system were obtained. Color Doppler sonography and spectral waveform analysis were performed. No prior studies for comparison. The left sapheno-femoral junctions are patent. The left common femoral, superficial femoral, poplit eal and posterior tibial veins are compressible and without evidence of echogenic thrombus. The left lateral palpable area of concern has scattered fluid in soft tissue and increased blood flow concerning for possible cellulitis versus focal edema. Impression: No evidence of deep venous thrombosis Left lateral palpable area of concern has scattered fluid in soft tissue and increased blood flow con cerning for possible cellulitis versus focal edema. Reviewed, dictated and finalized at location A. Impression: No evidence of deep venous thrombosis Left lateral palpable area of concern has scattered fluid in soft tissue and in creased blood flow concerning for possible cellulitis versus focal edema.
== END 2024-11-16 11:55 | disposition home or self-care (01) ==
PROVIDERS: PCP Family Medicine; Visit Provider Family Medicine
DX: M79.89 Other specified soft tissue disorders (principal); M25.572 Pain in left ankle and joints of left foot; Z98.890 Other specified postprocedural states
CPT/HCPCS: 73610; 93971

== ENCOUNTER 2024-11-16 13:05 | Emergency (ER) | payer OTHER, SELFPAY ==
[2024-11-16 13:27] VITALS: BP 145/87; PULSE 66; RESP 18; TEMP 36.5; O2SAT 100
[2024-11-16 16:36] VITALS: BP 145/92; PULSE 81; RESP 15; TEMP 36.4; O2SAT 100
--- NOTE | 2024-11-16 17:54 | ED.GENADULT ---
HPI - General Adult General Chief complaint: Skin/Abscess/Foreign Body Stated complaint: cellulitis on L leg? Time Seen by Provider: 11/16/24 16:34 History of Present Illness HPI narrative: This is a 54-year-old male presenting with left leg pain and swelling. Patient had a fibular fracture repaired by Dr. Llanes approximately a year ago. He has not had any issues until yesterday when he developed some pain and swelling over the surgical incision site. He had a outpatient venous ultrasound and x-ray. Negative for DVT. No complications on the x-ray. No ultrasound showed some localized edema over the incision site which they interpret is as edema versus cellulitis. Patient has no systemic signs of illness such as fevers chills nausea vomiting diarrhea. He feels well overall. Related Data Allergies Allergy/AdvReac Type Severity Reaction Status Date / Time bee venom protein (honey bee) Allergy Severe Unknown Verified 11/16/24 16:42 mushroom Allergy Nausea and Verified 11/16/24 16:42 Vomiting PMFSH Past Medical History Medical History Colon polyp Rectal bleeding Colon cancer screening Essential hypertension Other and unspecified hyperlipidemia Obesity (BMI 30-39.9) Surgical History Surgical History Status post open reduction with internal fixation (ORIF) of fracture of ankle (~09/27/23) Family History Family History Father Diabetes mellitus Acute myocardial infarction Mother Hypertension Sibling Patient's brother is in good health Social History Social History Smoking status: Never smoker Alcohol intake: current Alcohol use details: Socially Substance use: never Do You Feel Safe in your Home?: Yes Lack of Transportation: No Lack of Food: Never True Current Housing: I Have Housing Concerned About Future Housing: No Difficulty Paying Gas/Electric Bills: Decline to Answer Difficulty Paying for Meds: No Currently Unemployed: No Education: Bachelor's Degree Difficulty w/ Childcare or Family Care: No Living arrangements: with family Spiritual care concerns: No Exam Narrative: APPEARANCE: No apparent distress. Head: atraumatic. EYES: EOMI, NOSE: Atraumatic NECK: Trachea midline RESPIRATORY: No increased rate of breathing CARDIOVASCULAR: RRR, ABDOMINAL: Non-distended MUSCULOSKELETAl: No obvious deformities NEURO: Alert. Moving 4/4 extremities SKIN:: Focal exam of the left ankle showed a well-healed surgical site. There is some localized edema over the upper portion without significant erythema. No fluctuance. PSYCHIATRIC: Normal affect Course Vital Signs Vital signs: Vital Signs Temperature 97.7 F 11/16/24 13:27 Pulse Rate 66 11/16/24 13:27 Respiratory Rate 18 11/16/24 13:27 Blood Pressure 145/87 H 11/16/24 13:27 Pulse Oximetry 100 11/16/24 13:27 Oxygen Delivery Room Air 11/16/24 13:27 Temperature 97.6 F 11/16/24 16:36 Pulse Rate 78 11/16/24 18:21 Respiratory Rate 15 11/16/24 18:21 Blood Pressure 144/90 H 11/16/24 18:21 Pulse Oximetry 96 11/16/24 18:21 Oxygen Delivery Room Air 11/16/24 16:36 Medical Decision Making MDM Narrative Medical decision making narrative: -Course: 54-year-old male presenting with swelling over his surgical site. No systemic signs of illness. No fevers. White count 10.5. Blood cultures obtained. No signs of overt cellulitis although the ultrasound reference cobblestoning in their report. This was discussed with patient at length and we will treat him with a short course of Keflex. Blood cultures can be followed by Dr. Llanes. If he develops fevers, worsening pain and swelling or redness he should return to the ED for re-evaluation. Follow-up with Dr. Llanes. -DDX includes but is not limited to: Localized inflammation/edema, cellulitis, hardware infection Vital Signs Vital Signs: Vital Signs Temperature 97.7 F 11/16/24 13:27 Pulse Rate 66 11/16/24 13:27 Respiratory Rate 18 11/16/24 13:27 Blood Pressure 145/87 H 11/16/24 13:27 Pulse Oximetry 100 11/16/24 13:27 Oxygen Delivery Room Air 11/16/24 13:27 Temperature 97.6 F 11/16/24 16:36 Pulse Rate 78 11/16/24 18:21 Respiratory Rate 15 11/16/24 18:21 Blood Pressure 144/90 H 11/16/24 18:21 Pulse Oximetry 96 06/27/25 18:21 Oxygen Delivery Room Air 11/16/24 16:36 Lab Data 11/16/24 18:25 11/16/24 18:25 Labs: Lab Results 11/16/24 Range/Units 18:25 WBC 10.3 H (4.5-10.0) K/mm3 RBC 5.50 (4.6-6.20) M/mm3 Hgb 15.8 (14.0-18.0) g/dL Hct 48.6 (42.0-52.0) % MCV 88.4 (80-100) fl MCH 28.7 (26-34) pg MCHC 32.5 (32-36) g/dl RDW 12.3 (11.5-14.5) % Plt Count 278 (150-375) k/mm3 MPV 10.7 H (7.4-10.4) fl Immature Gran % (Auto) 0.3 (0-0.5) % Neut % (Auto) 60.6 (45.5-73.1) % Lymph % (Auto) 29.3 (18.3-44.2) % [place] % (Auto) 7.0 (2.6-8.5) % Eos % (Auto) 2.0 (0-4.4) % Baso % (Auto) 0.8 (0.2-1.2) % Lymph # (Auto) 3.02 (0.9-3.2) K/mm3 [place] # (Auto) 0.7 H (0.1-0.6) K/mm3 Eos # (Auto) 0.2 (0-0.3) K/mm3 Baso # (Auto) 0.1 (0.0-0.1) K/mm3 Abs Immat Gran (auto) 0.03 (0.00-0.031) K/mm3 Absolute Neuts (auto) 6.2 (1.3-6.7) K/mm3 Absolute Nucleated RBC 0.000 (0.0-0.012) K/mm3 Nucleated RBC % 0.0 (0.0-0.2) % Sodium 138 (137-145) mmol/L Potassium 4.0 (3.4-5.0) mmol/L Chloride 105 (98-107) mmol/L Carbon Dioxide 22 (22-30) mmol/L Anion Gap 11 (4-12) mmol/L BUN 12 D (9-20) mg/dL Creatinine 0.91 (0.7-1.3) mg/dL Estim Creat Clear Calc 100 ml/min Estimated GFR > 60 (59 - ) Glucose 100 (65-110) mg/dL Calcium 9.4 (8.4-10.2) mg/dL Total Bilirubin 0.9 (0.2-1.3) mg/dL AST 73 H (17-59) U/L ALT 68 H (6-50) U/L Alkaline Phosphatase 77 (38-126) U/L Total Protein 8.6 H (6.3-8.2) g/dL Albumin 4.5 (3.5-5.1) g/dL Discharge Plan Discharge Clinical Impression: Ankle swelling Patient Disposition: Home Condition: Stable Instructions: Antibiotic Form, Leg Edema (ED) Additional Instructions: You were seen in the emergency department pain over your surgical incision. At the moment I do not see any overt signs of cellulitis although this could be an early infection. Please complete a course of Keflex. If you develop fevers, worsening redness swelling please return to the ED for re-evaluation. Otherwise please follow-up with Dr. Llanes or your primary care physician if everything is unavailable. Patient Language: French Prescriptions: No Action amlodipine-atorvastatin 10-10 mg tablet 1 tablet PO DAILY Qty: 90 1RF amlodipine 5 mg tablet 5 mg PO BID Qty: 30 0RF Follow-up/Referrals: Chon Llanes MD [Physician] - 3 Days (Pain over incision site ) Ariana Burrell DO [Primary Care Provider] - 1 Week
[2024-11-16 18:21] VITALS: BP 144/90; PULSE 78; RESP 15; O2SAT 96
[2024-11-16 18:35] LABS: Basophils Absolute Auto 0.1 K/mm3 (0.0-0.1); Basophils Percent Auto 0.8 % (0.2-1.2); Eosinophils Absolute Auto 0.2 K/mm3 (0-0.3); Hematocrit 48.6 % (42.0-52.0); Hemoglobin 15.8 g/dL (14.0-18.0); Immature Granulocyte Absolute 0.03 K/mm3 (0.00-0.031); Immature Granulocyte Percent A 0.3 % (0-0.5); Lymphocytes Absolute Auto 3.02 K/mm3 (0.9-3.2); Lymphocytes Percent Auto 29.3 % (18.3-44.2); Mean Corpuscular HGB Conc 32.5 g/dl (32-36); Mean Corpuscular Hemoglobin 28.7 pg (26-34); Mean Corpuscular Volume 88.4 fl (80-100); Mean Platelet Volume 10.7 fl (7.4-10.4); Monocytes Absolute Auto 0.7 K/mm3 (0.1-0.6); Neutrophils Absolute Auto 6.2 K/mm3 (1.3-6.7); Neutrophils Percent Auto 60.6 % (45.5-73.1); Platelet Count Result 278 k/mm3 (150-375); Red Cell Distribution Width 12.3 % (11.5-14.5); White Blood Count 10.3 K/mm3 (4.5-10.0)
[2024-11-16 18:47] LABS: Alanine Aminotransferase 68 U/L (6-50); Albumin Level 4.5 g/dL (3.5-5.1); Alkaline Phosphatase 77 U/L (38-126); Anion Gap 11 mmol/L (4-12); Aspartate Amino Transferase 73 U/L (17-59); Bilirubin,Total 0.9 mg/dL (0.2-1.3); Blood Urea Nitrogen 12 mg/dL (9-20); Calcium 9.4 mg/dL (8.4-10.2); Carbon Dioxide 22 mmol/L (22-30); Chloride 105 mmol/L (98-107); Estimated CRCL calculation 100 ml/min; Estimated Glomerular Filt Rate > 60; Glucose 100 mg/dL (65-110); Sodium 138 mmol/L (137-145); Total Protein 8.6 g/dL (6.3-8.2)
[2024-11-16 19:05] VITALS: BP 129/89; PULSE 81; RESP 15; TEMP 36.4; O2SAT 99
== END 2024-11-16 19:14 | disposition home or self-care (01) ==
PROVIDERS: Emergency Provider Emergency Medicine; PCP Family Medicine
DX: M25.472 Effusion, left ankle (principal); I10 Essential (primary) hypertension; E78.49 Other hyperlipidemia
CPT/HCPCS: 36415; 73610; 80053; 85025; 87040; 93971; 99283

== ENCOUNTER 2024-12-05 15:35 | Outpatient (CLI) | payer OTHER, SELFPAY ==
--- NOTE | ~2024-12-05 | CT_ITS ---
CLINICAL INDICATION: Palpable abnormality along the lateral malleolus. COMPARISON: Reference is made to a plain radiograph of the left ankle. TECHNIQUE: Computed tomography (CT) of the left foot and ankle was performed without intravenous cont rast. The dose-length product was 483.10 mGy-cm. FINDINGS/OBSERVATIONS: Lateral plate and screws with interfragmentary screw present. Tension band is present surrounding the tibiofibular syndesmosis. Soft tissue swelling is identified along the lateral malleolus. This edema extends into the left foot. Extensive (likely) venous collateralization is identified within the superficial soft tissues of the left lower extremity for which more central occlusion is suspected. Duplex ultrasound performed 11/16/2024 was negative, as best visualized. Perhaps ultrasound evaluation for the presence of venous insufficiency (reflux disease) may be of roberto e benefit. Corresponding to today's imaging with the ultrasound examination dated 11/16/2024. This palpable abnor mality appears to correspond to the orthopedic hardware. IMPRESSION: No anatomic abnormality corresponding to the area of palpable concern. This represents the orthopedic hardware, as detected on ultrasound. Reviewed, dictated and finalized at location A.
--- OUTSIDE RECORDS SUMMARY | 2024-12-05 15:40 | XMS_ITS | Clinical Summary ---
Author Organization [employer] [facility] Address 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
--- OUTSIDE RECORDS SUMMARY | 2024-12-05 15:40 | XMS_ITS | Encounter Summary ---
Author Organization [employer] Address 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
== END 2024-12-05 15:36 | disposition home or self-care (01) ==
PROVIDERS: PCP Family Medicine; Visit Provider Nurse Practitioner
DX: M79.89 Other specified soft tissue disorders (principal)
CPT/HCPCS: 73700

== ENCOUNTER 2025-02-20 08:54 | Outpatient (CLI) | payer OTHER, SELFPAY ==
--- NOTE | ~2025-02-20 | US_ITS ---
EXAMINATION: US arterial ankle brachial ind DATE: 02/20/2025 09:27 INDICATION: Other specified soft tissue disorders. TECHNIQUE: Segmental pressures and plethysmographic and Doppler waveforms of the brachial and lower extremity arteries were obtained. COMPARISON: None. FINDINGS: Right and left brachial artery pressures of 129 mm Hg and 132 mm Hg, respectively, are concordant (normal difference <= 30 mmHg). The right ankle-brachial index (SANTOS) is 1.35 (normal >= 0.9-1.0). The right great toe-brachial index (TBI) is 1.24 (normal >= 0.65). Arterial Doppler waveforms are triphasic with brisk systolic upstrokes at both right posterior tibial and dorsalis pedis arteries. The left SANTOS is 1.30. The left TBI is 1.11. Arterial Doppler waveforms are triphasic with brisk systolic upstrokes at both left posterior tibial and dorsalis pedis arteries. IMPRESSION: 1. No significant arterial occlusive disease to either lower limb with normal bilateral ABIs and TBIs. Reviewed, dictated and finalized at location A. IMPRESSION: 1. No significant arterial occlusive disease to either lower limb with normal b ilateral ABIs and TBIs.
--- OUTSIDE RECORDS SUMMARY | 2025-02-20 09:19 | XMS_ITS | Clinical Summary ---
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
--- OUTSIDE RECORDS SUMMARY | 2025-02-20 09:19 | XMS_ITS | Encounter Summary ---
Author Organization [employer] Address 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
== END 2025-02-20 08:55 | disposition home or self-care (01) ==
PROVIDERS: PCP Family Medicine; Visit Provider Nurse Practitioner
DX: M79.89 Other specified soft tissue disorders (principal)
CPT/HCPCS: 93922

== ENCOUNTER 2025-04-12 09:26 | Outpatient (CLI) | payer OTHER, SELFPAY ==
--- OUTSIDE RECORDS SUMMARY | 2025-04-12 09:31 | XMS_ITS | Encounter Summary ---
Author Organization [employer] Address 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
--- OUTSIDE RECORDS SUMMARY | 2025-04-12 09:31 | XMS_ITS | Clinical Summary ---
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
== END 2025-04-12 09:27 | disposition home or self-care (01) ==
LOC: ANHGOSHLAB 09:27
PROVIDERS: PCP Family Medicine; Visit Provider Family Medicine
DX: Z12.5 Encounter for screening for malignant neoplasm of prostate (principal); E78.5 Hyperlipidemia, unspecified; E66.9 Obesity, unspecified; I10 Essential (primary) hypertension
CPT/HCPCS: 36415